=== PATIENT | female | born 1980 | race Caucasian/White ===

== ENCOUNTER 2019-03-13 18:46 | Observation (INO) ==
[2019-03-13] MEDS ORDERED: ONDANSETRON 4 MG/2 ML VIAL IV STA (19:17)
[2019-03-13] MEDS ORDERED: KETOROLAC 30 MG/1 ML VIAL IV STA (19:17)
[2019-03-13] MEDS ORDERED: MORPHINE 4 MG/1 ML VIAL IV STA (19:17)
[2019-03-13 19:24] LABS: Basophils % 0.3 % (0.0-0.8); Eosinophils # 0.1 10*3/uL (0.0-0.87); Eosinophils % 0.5 % (0.00-10.9); Hematocrit 39.5 VOL% (35.7-47.0); Hemoglobin 12.7 GM/DL (12.0-16.0); Immature Granulocytes % 0.5 %; Immature Granulocytes Absolute 0.06 #; Lymphocytes % 8.8 % (21.3-54.2); Mean Corpuscular HGB Conc 32.2 GM/DL (32-36); Mean Corpuscular Volume 96.1 FL (87-102); Mean Platelet Volume 10.1 FL (9.6-12.0); Monocytes % 6.2 % (1.7-12.7); Neutrophils % 83.7 % (38.7-73.9); Platelet Count 148 T/CUMM (130-400); Red Blood Count 4.11 MC/CUMM (3.8-5.5); Red Cell Distribution Width 13.4 % (9.3-17.3); White Blood Count 11.5 T/CUMM (4-12)
[2019-03-13 19:43] LABS: Albumin 4.1 G/DL (3.4-5.0); Bilirubin,Total 0.5 MG/DL (0.2-1.0); Calcium 8.8 MG/DL (8.5-10.1); Osmolality,Calculated 274.7 MOS/KG (273-304); Total Protein 7.8 G/DL (6.4-8.3)
[2019-03-13] MEDS ORDERED: SODIUM CHLORIDE 0.9% 1,000 ML IV STA (20:15)
[2019-03-13] MEDS ORDERED: HYDROmorphone 2 MG/1 ML VIAL IV STA ×3 (20:18→23:02)
[2019-03-13 21:27] LABS: Apearance,Urine CLEAR (Clear); Bilirubin,Urine Negative (Negative); Blood, Urine Negative (Negative); Glucose,Urine (UA) Negative (Negative); Hyaline Casts,Urine 3 /LPF (0-3); Ketones,Urine 20 mg/dL (Negative); Mucus,Urine Occasional /LPF (Occasional); Nitrite,Urine Negative (Negative); Protein,Urine Negative; RBC,Urine 1 /HPF (0-4); Squamous Epithelial Cell,Urine Occasional /HPF (0-10); Urine Color Yellow (Yellow); Urine Specific Gravity 1.021 (1.001-1.035); Urine Urobilinogen < 2.0 EU/DL (0.2-1.0); WBC,Urine 1 /HPF (0-6)
[2019-03-13 22:07] LABS: Basophils % 0.3 % (0.0-0.8); Hematocrit 35.2 VOL% (35.7-47.0); Hemoglobin 11.3 GM/DL (12.0-16.0); Immature Granulocytes % 0.4 %; Immature Granulocytes Absolute 0.03 #; Lymphocytes # 0.6 10*3/uL (1.4-4.0); Lymphocytes % 8.3 % (21.3-54.2); Mean Corpuscular HGB Conc 32.1 GM/DL (32-36); Platelet Count 132 T/CUMM (130-400); Red Blood Count 3.63 MC/CUMM (3.8-5.5); Red Cell Distribution Width 13.4 % (9.3-17.3); White Blood Count 7.4 T/CUMM (4-12)
[2019-03-13 22:33] LABS: Albumin 3.5 G/DL (3.4-5.0); Bilirubin,Total 0.4 MG/DL (0.2-1.0); Calcium 8.3 MG/DL (8.5-10.1); Osmolality,Calculated 278.4 MOS/KG (273-304); Total Protein 6.7 G/DL (6.4-8.3)
[2019-03-13] MEDS ORDERED: diphenhydrAMINE 50 MG/1 ML VIAL IV STA (23:02)
[2019-03-13] MEDS ORDERED: METOCLOPRAMIDE 10 MG/2 ML VIAL IV STA (23:02)
[2019-03-14] MEDS: SODIUM CHLORIDE 0.9% 1,000 ML IV SCH ×4 (01:49→20:51)
[2019-03-14] MEDS ORDERED: SODIUM CHLORIDE 0.9% 1,000 ML IV STA (01:59)
[2019-03-14 02:40] LABS: Albumin 3.5 G/DL (3.4-5.0); Bilirubin,Direct 0.11 MG/DL (0.0-0.20); Bilirubin,Indirect 0.3 MG/DL (0.0-1.0); Bilirubin,Total 0.4 MG/DL (0.2-1.0); Total Protein 6.6 G/DL (6.4-8.3)
[2019-03-14] MEDS: HYDROmorphone 2 MG/1 ML VIAL IV PRN ×4 (03:41→16:44)
[2019-03-14] MEDS: ONDANSETRON 4 MG/2 ML VIAL IV PRN ×4 (03:41→16:43)
[2019-03-14 04:47] LABS: Basophils % 0.4 % (0.0-0.8); Eosinophils % 0.7 % (0.00-10.9); Hematocrit 32.9 VOL% (35.7-47.0); Hemoglobin 10.5 GM/DL (12.0-16.0); Immature Granulocytes % 0.2 %; Immature Granulocytes Absolute 0.01 #; Lymphocytes # 1.5 10*3/uL (1.4-4.0); Lymphocytes % 28.3 % (21.3-54.2); Mean Corpuscular HGB Conc 31.9 GM/DL (32-36); Mean Corpuscular Volume 97.3 FL (87-102); Mean Platelet Volume 10.7 FL (9.6-12.0); Monocytes % 8.1 % (1.7-12.7); Neutrophils % 62.3 % (38.7-73.9); Platelet Count 121 T/CUMM (130-400); Red Blood Count 3.38 MC/CUMM (3.8-5.5); Red Cell Distribution Width 13.6 % (9.3-17.3); White Blood Count 5.4 T/CUMM (4-12)
[2019-03-14 04:55] LABS: PT Patient Result 10.6 SECS; Partial Thromboplastin Time 23.3 SECS (0-40)
[2019-03-14 05:11] LABS: Calcium 7.6 MG/DL (8.5-10.1); Osmolality,Calculated 279.3 MOS/KG (273-304); Risk Ratio 2.8; Thyroid Stimulating Hormone 0.978 uIU/ml (0.358-3.74)
[2019-03-14] MEDS ORDERED: MAGNESIUM SULF RIDER 4 GM in PREMIX 1 EACH IV ONE (08:29)
[2019-03-14] MEDS: NICOTINE 21 MG/24 HR PATCH TRANSDERM SCH (08:42)
[2019-03-14] MEDS ORDERED: PANTOPRAZOLE 40 MG TABLET PO SCH (09:00)
[2019-03-14] MEDS ORDERED: NICOTINE GUM BUCCAL PRN (10:20)
[2019-03-14] MEDS: diphenhydrAMINE CAP 50 MG CAPSULE PO PRN ×2 (11:30→18:35)
[2019-03-14 13:57] LABS: Hepatitis B Surface Ag Quant < 0.10 Index; Hepatitis B Surface Ag Result Negative (Negative); Hepatitis C Virus Ab Quant 0.12 Index; Hepatitis C Virus Ab Result Negative (Negative)
[2019-03-14] MEDS ORDERED: DEXTROSE 10% 250 ML BAG IV PRN (16:12)
[2019-03-14] MEDS ORDERED: GLUCAGON 1 MG VIAL IM PRN (16:14)
[2019-03-14] MEDS ORDERED: NICOTINE 21 MG/24 HR PATCH TRANSDERM ONE (16:38)
[2019-03-14] MEDS: oxyCODONE/ACETAMINOPHEN 5-325 MG TABLET PO PRN (19:35)
[2019-03-14] MEDS: FAMOTIDINE 20 MG/2 ML VIAL IV SCH (20:42)
[2019-03-14] MEDS ORDERED: (Liraglutide [Victoza 3-Pak] 1.2 MG) SUBCUT SCH (21:00)
[2019-03-14] MEDS ORDERED: VENLAFAXINE XR 75 MG CAPSULE PO SCH (21:00)
[2019-03-15] MEDS: SODIUM CHLORIDE 0.9% 1,000 ML IV SCH ×3 (02:34→04:43)
[2019-03-15 04:51] LABS: Basophils % 0.5 % (0.0-0.8); Eosinophils % 0.4 % (0.00-10.9); Hematocrit 31.8 VOL% (35.7-47.0); Hemoglobin 9.9 GM/DL (12.0-16.0); Immature Granulocytes % 0.4 %; Immature Granulocytes Absolute 0.02 #; Lymphocytes # 1.2 10*3/uL (1.4-4.0); Lymphocytes % 21.6 % (21.3-54.2); Mean Corpuscular HGB Conc 31.1 GM/DL (32-36); Mean Corpuscular Volume 98.8 FL (87-102); Mean Platelet Volume 10.4 FL (9.6-12.0); Monocytes % 5.3 % (1.7-12.7); Neutrophils % 71.8 % (38.7-73.9); Platelet Count 123 T/CUMM (130-400); Red Blood Count 3.22 MC/CUMM (3.8-5.5); Red Cell Distribution Width 13.7 % (9.3-17.3); White Blood Count 5.6 T/CUMM (4-12)
[2019-03-15 05:25] LABS: Albumin 2.8 G/DL (3.4-5.0); Bilirubin,Total 0.8 MG/DL (0.2-1.0); Calcium 7.5 MG/DL (8.5-10.1); Osmolality,Calculated 285.7 MOS/KG (273-304); Total Protein 5.5 G/DL (6.4-8.3)
[2019-03-15] MEDS: oxyCODONE/ACETAMINOPHEN 5-325 MG TABLET PO PRN ×2 (06:23→15:00)
[2019-03-15] MEDS: ONDANSETRON 4 MG/2 ML VIAL IV PRN (06:24)
[2019-03-15] MEDS: diphenhydrAMINE CAP 50 MG CAPSULE PO PRN ×2 (06:28→12:39)
[2019-03-15] MEDS: NICOTINE 21 MG/24 HR PATCH TRANSDERM SCH (09:36)
[2019-03-15] MEDS: FAMOTIDINE 20 MG/2 ML VIAL IV SCH (09:37)
[2019-03-15] MEDS: HYDROmorphone 2 MG/1 ML VIAL IV PRN (11:44)
[2019-03-15 15:58] VITALS: BP 109/67
== END 2019-03-15 16:47 | disposition home or self-care (01) ==
LOC: N.EDINP 18:46 → N.ED 18:46 → SUATTDRO 03-14 00:50 → N.2E 03-14 01:43
PROVIDERS: ADMIT Emergency Medicine; ATTEND Family Medicine